=== PATIENT | male | born 1945 | race Asian ===

== ENCOUNTER 2017-01-18 10:40 | Day surgery (SDC) | payer BC ==
[2017-01-18] VITALS (12 sets, daily range): BP systolic 120–156; BP diastolic 58–79; PULSE 53–78; RESP 16–25; Ht 165.1 cm; Wt 58.1 kg
[~2017-01-18] VITALS: Ht 165.1 cm; Wt 58.1 kg
[2017-01-18 11:53] LABS: ADD SCAN DIFF NO
[2017-01-18] MEDS ORDERED: BUPIVACAINE 0.25% (MPF) 30 ML INJ ONE (11:54)
[2017-01-18 11:59] LABS: BASOPHILS % 0.6 % (0.0-2.0); EOSINOPHILS # 0.3 10^3/ul (0.0-0.5); EOSINOPHILS % 4.8 % (0.0-7.0); HEMATOCRIT 43.6 % (42.0-52.0); HEMOGLOBIN 15.2 g/dl (14.0-18.0); LYMPHOCYTES # 1.9 10^3/ul (0.8-2.9); LYMPHOCYTES % 28.5 % (15.0-51.0); MEAN CORPUSCULAR HEMOGLOBIN 32.2 pg (29.0-33.0); MEAN CORPUSCULAR HGB CONC 34.9 g/dl (32.0-37.0); MEAN CORPUSCULAR VOLUME 92.4 fl (82.0-101.0); MEAN PLATELET VOLUME 9.9 fl (7.4-10.4); MONOCYTE # 0.5 10^3/ul (0.3-0.9); MONOCYTES % 7.1 % (0.0-11.0); NEUTROPHIL # 3.9 10^3/ul (1.6-7.5); NEUTROPHILS % 58.7 % (39.0-77.0); PLATELET COUNT 213 10^3/UL (140-415); RED BLOOD COUNT 4.72 10^6/ul (4.70-6.10); RED CELL DISTRIBUTION WIDTH 12.1 % (11.5-14.5); WHITE BLOOD COUNT 6.6 10^3/ul (4.8-10.8)
--- NOTE | 2017-01-18 12:07 | RADRPT ---
PROCEDURE: XR Chest. CLINICAL INDICATION: 71-year-old male with scheduled mass removal. Preop chest x-ray. TECHNIQUE: Single frontal view of the chest was obtained COMPARISON: No. FINDINGS: The soft tissues are normal. There are degenerative osteophytes in the thoracic spine. The the lef t ventricle is enlarged. The cardiomediastinal silhouette, pulmonary vasculature and hilar structur es are normal. The left-sided aorta is ectatic. There are vascular calcifications in the aortic arch . The lungs are clear. The costophrenic angles are normal. IMPRESSION: 1. There is no evidence of active cardiopulmonary disease. 2. Left ventricular enlargement. 3. Ectasia of the thoracic aorta. 4. Spondylosis of the thoracic spine. RPTAT:AAJJ Physician Nina Date Time Electronically viewed and signed by Tru Patricia Physician on 01/18/2017 12:06 NICOLETTE/
[2017-01-18] MEDS ORDERED: LISI20TA11 PO (12:13)
[2017-01-18] MEDS ORDERED: AMLO5TAB4 PO (12:13)
[2017-01-18] MEDS ORDERED: METO50TA16 PO (12:13)
[2017-01-18] MEDS ORDERED: ATOR10TA65 PO (12:13)
[2017-01-18] MEDS ORDERED: PROPOFOL 100 ML ONE (12:30)
[2017-01-18] MEDS ORDERED: MIDAZOLAM 1 MG/ML 2 ML INJ ONE (12:31)
[2017-01-18] MEDS ORDERED: FENTAnyl 50 MCG/ML VIAL ONE (12:31)
[2017-01-18] MEDS ORDERED: METOCLOPRAMIDE 10 MG INJ ONE (12:31)
[2017-01-18] MEDS ORDERED: LIDOCAINE 1%/EPI 30 ML INJ ONE (12:34)
--- NOTE | 2017-01-18 12:35 | HPN ---
Date/Time of Note Date/Time of Note DATE: 01/18/17 TIME: 12:35 Interval H&P Admission Note Pt. seen H&P reviewed: No system changes ALEXA VU MD Jan 18, 2017 12:35
[2017-01-18 12:37] LABS: CALCIUM 9.1 mg/dl (8.4-10.2); CREATININE 0.76 mg/dl (0.61-1.24); POTASSIUM 3.6 mmol/L (3.5-5.1)
[2017-01-18] MEDS ORDERED: CEFAZOLIN 1 GM INJ ONE (12:46)
[2017-01-18] MEDS ORDERED: EPHEDrine SULFATE 50 MG/5 ML SYG ONE (12:55)
[2017-01-18] MEDS ORDERED: ONDANSETRON 4 MG INJ IV PRN ×2 (14:00→14:30)
[2017-01-18] MEDS ORDERED: METOCLOPRAMIDE 10 MG INJ IV PRN (14:00)
[2017-01-18] MEDS ORDERED: OXYCODONE/ACETAMINOPHEN (5/325) TAB PO PRN ×2 (14:00)
[2017-01-18] MEDS ORDERED: DIPHENHYDRAMINE 50 MG INJ IV PRN (14:00)
[2017-01-18] MEDS ORDERED: HYDROmorphONE (0.2 MG/ML) 10ML SYG IV PRN ×3 (14:00)
[2017-01-18] MEDS ORDERED: MEPERIDINE 25 MG INJ IV PRN (14:00)
--- NOTE | 2017-01-18 14:17 | OPR ---
Date/Time of Note Date/Time of Note DATE: 01/18/17 TIME: 14:10 Operative Report Procedure Date: Jan 18, 2017 Preoperative Diagnosis Soft tissue mass of back Postoperative Diagnosis Soft tissue mass of back Operation Performed 1. Excision soft tissue mass of back, subfascial, 16 cm x 13 cm 2. Placement of drain Surgeon: ALEXA VU MD Anesthesia: general Anesthesiologist: KARLENE JIMENEZ MD Estimated Blood Loss: minimal Specimens Soft tissue mass of back Tubes/Drains 15 Vietnamese Lloyd drain Complications: None Pt Condition Post Procedure: stable Disposition: PACU Indications The patient is a 71-year-old gentleman who presented to the office with a large soft tissue mass of the back. This is been present for 20 years. It had been increasingly enlarging and causing increasing pain and discomfort. He was scheduled for excision for symptom relief and definitive pathological diagnosis. All risks and benefits of the procedure including, but not limited to : Wound infection, excessive bleeding, postoperative seroma/hematoma formation, mass recurrence, etc. were all explained to the patient in full detail. He fully understood and wished to proceed with the procedure. Informed consent was obtained. Operative Findings Large lipomatous mass proximally 16 cm x 13 cm subfascial location. Mass was densely adhered to and intertwined with muscle. Procedure Description The patient was brought to the operating room and placed on the operating room table in the right lateral decubitus position with the left side up. The mass was preoperatively marked and confirmed with the patient in the holding area. Bilateral sequential compression devices were placed on both lower extremities. A dose of broad-spectrum perioperative intravenous antibiotics was given. After the induction of adequate anesthesia the patient's back was prepped and draped in the standard surgical fashion. After performance of the surgical timeout, 1% lidocaine local anesthesia was infiltrated in a field block fashion around the mass. Using a 10 blade scalpel and incision was made over the mass. It was carried down through the skin and subcutaneous tissues using a combination of sharp dissection and Bovie electrocautery. The fascia was identified and incised. A large subfascial lipomatous mass was identified. It was densely adhered to the fascia and the underlying muscle. Portions of it extended posterior to the muscle right on top of the chest wall and ribs. Gentle dissection was done to free the mass from the surrounding tissues. Once this was completed the mass was transected at its base and passed off the field as specimen. It measured approximately 16 cm x 13 cm in maximal dimension. The wound cavity was then copiously irrigated with warm saline. Hemostasis was noted to be adequate. Given the large size of the mass and the resultant cavity was elected to leave a 15 Vietnamese round Lloyd drain in the area of excision to minimize risk of postoperative seroma and hematoma. It was brought out through the medial aspect of the incision and secured in place using a 2-0 nylon suture and hooked up to bulb suction. The fascia was then reapproximated using a running 2-0 Vicryl suture. Incision was then reapproximated using skin patria. Incision was cleaned and sterile dressings were applied. The patient was then awoken from anesthesia and transported to the recovery room in stable condition. All counts were correct at the end of the case 2 ALEXA VU MD Jan 18, 2017 14:16
[2017-01-18 14:19] LABS: INR 1.02; PROTIME 13.4 Sec (12.2-14.2)
[2017-01-18] MEDS ORDERED: HYDROCODONE/APAP (5/325) TAB PO PRN ×2 (14:30)
[2017-01-18] MEDS ORDERED: morphine 2 MG INJ IV PRN (14:30)
[2017-01-18] MEDS ORDERED: KETOROLAC 30 MG INJ IV PRN (14:30)
[2017-01-18] MEDS ORDERED: SOD CHLORIDE 0.9% 1,000 ML IV SCH (15:30)
[2017-01-18] MEDS ORDERED: CEFAZOLIN 2 GM/50 ML (PMX) 50 ML IVPB ONE (15:30)
[2017-01-18] MEDS ORDERED: IBUPROFEN 600 MG TAB PO PRN (22:00)
--- NOTE | 2017-01-19 15:48 | RADRPT ---
Vent Rate: 47 bpm RR Interval: 0 msec [place] Interval: 186 msec QRS Duration: 110 msec QT Interval: 474 msec QTC Interval: 419 msec P-R-T Captiva: 4 - -29 - 121 degrees Marked sinus bradycardia with occasional premature ventricular complexes Incomplete left bundle branch block Left ventricular hypertrophy with repolarization abnormality Abnormal ECG Electronically Signed By: Jarad Evans [id number]
--- NOTE | 2017-01-20 11:41 | PREOPHP ---
DATE OF ADMISSION: 01/18/2017 REASON FOR CONSULTATION: Back mass. HISTORY OF PRESENT ILLNESS: Patient is a 71-year-old gentleman with soft tissue mass of the back. This has been present for several years, it has been growing and causing increasing discomfort. PAST MEDICAL HISTORY: Significant for hypertension, hypercholesterolemia and questionable congestiv e heart failure. PAST SURGICAL HISTORY: Negative. MEDICATIONS: None. ALLERGIES: NO KNOWN DRUG ALLERGIES. REVIEW OF SYSTEMS: A 14-point review of systems was negative except for that which was mentioned in the HPI. PHYSICAL EXAMINATION: VITAL SIGNS: Patient is afebrile, blood pressure is 180/77. GENERAL APPEARANCE: Well-developed, well-nourished gentleman who is awake, alert, and oriented x3, no acute distress at this time. CARDIOVASCULAR: S1, S2, regular rate and rhythm. No murmurs appreciated. RESPIRATORY: Clear to auscultation bilaterally. ABDOMEN: Soft, nontender. BACK: Shows a large soft tissue mass of the left upper back well over 10 cm that is well circumscri bed and nontender to palpation. EXTREMITIES: Free range of motion x4. ASSESSMENT AND PLAN: Soft tissue mass of the back. Recommend excision for symptom relief for defin itive pathological diagnosis. This was discussed with the patient including all risks and benefits. He understands and agrees to proceed. Dictated By: ALEXA WEST/LEVI Conf#: [id number] DID#: [id number]
== END 2017-01-18 15:50 | disposition home or self-care (01) ==
LOC: SDS 10:40
PROVIDERS: ATTEND Surgery
DX: D17.1 Benign lipomatous neoplasm of skin and subcutaneous tissue of trunk (principal); I10 Essential (primary) hypertension; E78.00 Pure hypercholesterolemia, unspecified
CPT/HCPCS: 11406; 71010; 80048; 85025; 85610; 85730; 88307; 93005; J0690; J2250; J2765; J3010; Z7512; Z7610

== ENCOUNTER 2018-05-18 14:00 | Observation (INO) | END 2018-05-19 11:08 | disposition home or self-care (01) ==

== ENCOUNTER 2018-05-27 17:44 | Emergency (ER) | END 2018-05-27 20:24 | disposition home or self-care (01) ==

== ENCOUNTER 2018-05-28 08:04 | Emergency (ER) | END 2018-05-28 09:20 | disposition home or self-care (01) ==